=== PATIENT | female | born 2005 | race Two or more races ===

== ENCOUNTER 2025-02-07 15:57 | Emergency (ER) | payer MEDICAID, OTHER ==
[~2025-02-07] VITALS: Ht 152.4 cm; Wt 61.2 kg
[2025-02-07] MEDS ORDERED: METOCLOPRAMIDE HCL 10 MG/2 ML VIAL ONE (17:47)
[2025-02-07] MEDS: IV NS 0.9% 1,000 ML BAG IV ONE (18:01)
[2025-02-07] MEDS: METOCLOPRAMIDE HCL 10 MG/2 ML VIAL IV ONE (18:02)
[2025-02-07 18:11] LABS: PLATELET COUNT (AUTO) 247 K/uL (150-450); RED BLOOD CELL COUNT(AUTO) 4.55 MIL/uL (4.0-5.2); RED CELL DISTRIBUTION WIDTH 13.0 % (11.5-15.0); WHITE BLOOD COUNT (AUTO) 8.1 K/uL (4.3-11.0)
[2025-02-07 18:24] LABS: CALCIUM, SERUM 9.1 mg/dL (8.5-10.1); CREATININE 0.9 mg/dL (0.6-1.3); SODIUM SERUM 140.0 mmol/L (136-145); UREA NITROGEN, BLOOD 17.0 mg/dL (7-18)
[2025-02-07 18:30] LABS: ASPARTATE AMINOTRANSFERASE 16.0 U/L (15-37); TOTAL PROTEIN, SERUM 8.1 g/dL (6.4-8.2)
[2025-02-07 19:07] LABS: APPEARANCE,URINE SLIGHTLY CLOUDY (CLEAR); BLOOD, URINE NEGATIVE Ery/uL (NEGATIVE); LEUKOCYTE ESTERASE ,URINE NEGATIVE (NEGATIVE); NITRITE, URINE NEGATIVE (NEGATIVE); PREGNANCY TEST URINE QUAL NEGATIVE (NEGATIVE); UGLUCOSE NEGATIVE (NEGATIVE)
[2025-02-07] MEDS ORDERED: AMOX-430 PO (19:07)
[2025-02-07] MEDS ORDERED: ONDA4TAB5 PO (19:07)
[2025-02-07] MEDS ORDERED: ALBU18HF2 INH (19:07)
[2025-02-07 19:16] LABS: ADD URINE CULTURE YES
[2025-02-07 19:26] VITALS: BP 112/98; TEMP 97.9; O2SAT 96
== END 2025-02-07 19:27 | disposition home or self-care (01) ==
LOC: ER 16:25
DX: H66.93 Otitis media, unspecified, bilateral (principal); R11.2 Nausea with vomiting, unspecified; Z90.49 Acquired absence of other specified parts of digestive tract
CPT/HCPCS: 99283; 96374; 96361; 85025; 80048; 83690; 80076; 84703; 81001; 36415; J2765; J7030; 87086-TC